=== PATIENT | male | born 1950 | race Caucasian/White ===

== ENCOUNTER 2018-11-15 17:00 | Emergency (ER) | payer SELFPAY ==
[2018-11-15] MEDS ORDERED: NORMAL SALINE 1000 ML 1,000 ML IV ONE (17:22)
[2018-11-15] MEDS ORDERED: ONDANSETRON HCL INJ/PF 4 MG/2 ML SDV IV ONE (17:22)
--- NOTE | 2018-11-15 17:22 | ER Document Report ---
ED Medical Screen (RME) - General Chief Complaint: General Weakness Stated Complaint: NAUSEA Time Seen by Provider: 11/15/18 17:15 - HPI Notes: 11/15/18 17:20 Patient is a 67-year-old male with a history of chronic pain who presents complaining of feeling weak for 6 months with nausea and vomiting over the past week. He was sent here from his doctor's office for evaluation because he appears jaundiced. Patient does not have any concern or complaint of pain. He is able to eat and drink, but does have a decreased p.o. intake. He is urinating normally and having normal bowel movements. Denies drug allergies. Patient does admit to alcohol use, but not daily. Denies HORTON, fever, neck pain, URI, CP, SOB, Abd pain, dysuria, or rash. I have treated and performed a rapid initial assessment of this patient. A comprehensive ED assessment and evaluation of the patient, analysis of test results and completion of medical decision making process will be conducted by additional ED providers. PHYSICAL EXAMINATION: GENERAL: Well-appearing, well-nourished and in no acute distress. A&Ox4. Answers questions appropriately. Heavy smoker smell noted Eyes: + icteric LUNGS: Breath sounds clear to auscultation bilaterally and equal. No wheezes rales or rhonchi. HEART: Regular rate and rhythm without murmurs, rubs, gallops. ABDOMEN: Soft, nondistended abdomen. No guarding, no rebound. Normal bowel sounds present. No CVA tenderness bilaterally. Grossly nontender (cannot elicit thorough abd exam w/o bed, however). Extremities: No cyanosis, clubbing, or edema b/l. NEUROLOGICAL: Normal speech, normal gait. PSYCH: Normal mood, normal affect. Skin: Jaundiced - Related Data Allergies/Adverse Reactions: No Known Allergies Allergy (Unverified 11/15/18 17:22) Physical Exam - Vital signs Vitals: Temp Pulse Resp BP Pulse Ox 97.9 F 112 H 22 H 83/61 L 93 11/15/18 17:07 11/15/18 17:07 11/15/18 17:07 11/15/18 17:07 11/15/18 17:07 Course - Vital Signs Vital signs: Temp Pulse Resp BP Pulse Ox 97.9 F 112 H 22 H 83/61 L 93 11/15/18 17:07 11/15/18 17:07 11/15/18 17:07 11/15/18 17:07 11/15/18 17:07
[2018-11-15 17:52] LABS: VENOUS BLOOD BASE EXCESS 3.4 mmol/L; VENOUS BLOOD HCO3 27.4 mmol/L (20-32); VENOUS BLOOD PCO2 39.8 mmHg (35-63); VENOUS BLOOD PH 7.46 (7.30-7.42)
[2018-11-15 17:57] LABS: HEMATOCRIT 36.3 % (37.9-51.0); HEMOGLOBIN 12.9 g/dL (13.5-17.0); MEAN CORPUSCULAR HGB CONC 35.7 g/dL (32.0-36.0); MEAN CORPUSCULAR VOLUME 106 fl (80-97); PLATELET COUNT 104 10^3/uL (150-450); RED BLOOD COUNT 3.41 10^6/uL (4.35-5.55); RED CELL DISTRIBUTION WIDTH 17.6 % (11.5-14.0); WHITE BLOOD COUNT 6.5 10^3/uL (4.0-10.5)
--- NOTE | 2018-11-15 17:59 | RADIOLOGY REPORT (SQ) ---
EXAM DESCRIPTION: CHEST SINGLE VIEW COMPLETED DATE/TIME: 11/15/2018 5:45 pm REASON FOR STUDY: weakness COMPARISON: None. EXAM PARAMETERS: NUMBER OF VIEWS: One view. TECHNIQUE: Single frontal radiographic view of the chest acquired. RADIATION DOSE: NA LIMITATIONS: None. FINDINGS: LUNGS AND PLEURA: No consolidation, masses or pneumothorax. Mild lateral pleural thickeni ng. No pleural effusion. MEDIASTINUM AND HILAR STRUCTURES: No masses. Contour normal. HEART AND VASCULAR STRUCTURES: Heart normal in size. Normal vasculature. BONES: No acute findings. HARDWARE: None in the chest. OTHER: No other significant finding. IMPRESSION: No consolidation or pleural effusion.Mild lateral pleural thickening. TECHNICAL DOCUMENTATION: JOB ID: [id number] [employer]- All Rights Reserved Reading location - IP/workstation name: [email or web address]
[2018-11-15 18:02] LABS: INTERNATIONAL RATION (INR) 1.31; PROTHROMBIN TIME 16.9 SEC (11.4-15.4)
[2018-11-15 18:03] LABS: PARTIAL THROMBOPLASTIN TIME 31.2 SEC (23.5-35.8)
[2018-11-15 18:12] LABS: ALANINE AMINOTRANSFERASE 504 U/L (21-72); ALKALINE PHOSPHATASE 459 U/L (38-126); ANION GAP 19 (5-19); ASPARTATE AMINO TRANSFERASE 442 U/L (17-59); BILIRUBIN,DIRECT 24.3 mg/dL (0.0-0.4); BILIRUBIN,TOTAL 26.5 mg/dL (0.2-1.3); BLOOD UREA NITROGEN 107 mg/dL (7-20); CALCIUM 8.4 mg/dL (8.4-10.2); CARBON DIOXIDE 25 mmol/L (22-30); CHLORIDE 87 mmol/L (98-107); GLUCOSE 120 mg/dL (75-110); LIPASE 331.6 U/L (23-300); TOTAL PROTEIN 5.8 g/dL (6.3-8.2)
[2018-11-15 18:13] LABS: ABSOLUTE LYMPHOCYTES# (MANUAL) 0.5 10^3/uL (0.5-4.7); ABSOLUTE MONOCYTES # (MANUAL) 0.3 10^3/uL (0.1-1.4); BASOPHILS % (MANUAL) 0 % (0-2); EOSINOPHILS % (MANUAL) 0 % (0-6); LYMPHOCYTES % (MANUAL) 8 % (13-45); MONOCYTES % (MANUAL) 4 % (3-13); SEGMENTED NEUTROPHILS % (MAN) 88 % (42-78); TOTAL CELLS COUNTED 100
[2018-11-15 18:14] LABS: ANISOCYTOSIS SLIGHT; OVALOCYTES SLIGHT; PLATELET COMMENT DECREASED; POIKILOCYTOSIS SLIGHT
--- NOTE | 2018-11-15 18:14 | RADIOLOGY REPORT (SQ) ---
EXAM DESCRIPTION: U/S ABDOMEN LIMITED W/O DOP COMPLETED DATE/TIME: 11/15/2018 6:03 pm REASON FOR STUDY: jaundice COMPARISON: None. TECHNIQUE: Dynamic and static grayscale images acquired of the abdomen and recorded on PACS. Additio nal selected color Doppler and spectral images recorded. LIMITATIONS: None. FINDINGS: PANCREAS: No masses. Visualized pancreatic duct normal caliber. LIVER: Coarsened, increased echogenicity throughout. No focal mass. LIVER VASCULATURE: Normal directional flow of the main portal vein and hepatic veins. GALLBLADDER: No stones. Normal wall thickness. No pericholecystic fluid. ULTRASOUND-DETECTED HDEZ'S SIGN: Negative. INTRAHEPATIC DUCTS AND COMMON DUCT: CBD and intrahepatic ducts normal caliber. No filling defects. INFERIOR VENA CAVA: Normal flow. AORTA: No aneurysm. RIGHT KIDNEY: Normal size. Normal echogenicity. No solid or suspicious masses. No hydronephrosis. No calcifications. PERITONEAL AND RIGHT PLEURAL SPACE: Simple appearing ascites is demonstrated adjacent to the liver. OTHER: No other significant findings. IMPRESSION: The liver demonstrates coarsened, increased echogenicity throughout. Note is made of co ncomitant ascites. Differential considerations are broad to include cirrhosis, hepatitis, or other i nfiltrative process. TECHNICAL DOCUMENTATION: JOB ID: [id number] [employer]- All Rights Reserved Reading location - IP/workstation name: [email or web address]
[2018-11-15 18:15] LABS: POTASSIUM 2.4 mmol/L (3.6-5.0)
[2018-11-15] MEDS ORDERED: POTASSIUM CHLORIDE 20 MEQ PACKET PO ONE (18:29)
--- NOTE | 2018-11-15 18:45 | ER Document Report ---
ED General - General Chief Complaint: General Weakness Stated Complaint: NAUSEA Time Seen by Provider: 11/15/18 17:15 - HPI Notes: Patient is a 67-year-old male that presents to the emergency department for chief complaint of jaundice. Patient states he has had increased fatigue and malaise for the last 6 months. He reports no appetite and poor oral intake. He went to an urgent care facility today who referred him to the emergency room for jaundice and hypotension. Patient states he has not seen a primary care provider in the last 10 years. He reports drinking 3-4 alcoholic beverages week. He denies history of alcoholism. Patient denies any abdominal pain, fevers, chills, chest pain, shortness of breath, and diarrhea. He denies history of IV drug use or liver failure in the past. Past Medical History: Negative Past Surgical History: Negative Social History: 3-4 alcoholic beverages a week. Denies tobacco. Denies illicit drug use Family History: Reviewed and noncontributory for presenting illness Allergies: Reviewed, see documented allergy list. REVIEW OF SYSTEMS: CONSTITUTIONAL : No fever No chills No diaphoresis No recent illness Generalized weakness Poor appetite EENT: No vision changes No congestion No sore throat CARDIOVASCULAR: No chest pain No palpitations RESPIRATORY: No shortness of breath No cough No difficulty breathing GASTROINTESTINAL: No abdominal pain No nausea No vomiting No diarrhea GENITOURINARY: No dysuria No hematuria No difficulty urinating MUSCULOSKELETAL: No back pain No leg pain No arm pain SKIN: Jaundice No rashes No lesions LYMPHATIC: No swollen, enlarged glands. NEUROLOGICAL: No lightheadedness No headache No weakness No paresthesias PSYCHIATRIC: No anxiety No depression PHYSICAL EXAMINATION: Vital signs reviewed, nursing noted reviewed. GENERAL: Jaundiced, malnourished. HEAD: Atraumatic, normocephalic. EYES: Nystagmus, extraocular movements intact, sclera icteric, conjunctiva are normal ENT: nares patent, oropharynx clear without exudates. Dry mucous membranes. NECK: Normal range of motion, supple without lymphadenopathy LUNGS: Breath sounds clear to auscultation bilaterally and equal. No wheezes rales or rhonchi. HEART: Tachycardic rate and regular rhythm without murmurs ABDOMEN: Soft, nontender, normoactive bowel sounds. No rebound, guarding, or rigidity. No masses appreciated. EXTREMITIES: Nontender, good range of motion, no pitting or edema. NEUROLOGICAL: No focal neurological deficits. Moves all extremities spontaneously Motor and sensory grossly intact on exam. PSYCH: Normal mood, normal affect. SKIN: Warm, Dry, jaundice - Related Data Allergies/Adverse Reactions: No Known Allergies Allergy (Unverified 11/15/18 17:22) Past Medical History - Social History Smoking Status: Current Every Day Smoker Chew tobacco use (# tins/day): No Frequency of alcohol use: Heavy Drug Abuse: None Family History: Reviewed & Not Pertinent Patient has suicidal ideation: No Patient has homicidal ideation: No Renal/ Medical History: Denies: Hx Peritoneal Dialysis Physical Exam - Vital signs Vitals: Temp Pulse Resp BP Pulse Ox 97.9 F 112 H 22 H 83/61 L 93 11/15/18 17:07 11/15/18 17:07 11/15/18 17:07 11/15/18 17:07 11/15/18 17:07 Course - Re-evaluation Re-evalutation: 11/15/18 20:26 Vitals reviewed. Nursing notes reviewed. Patient presented tachycardic and hypotensive. His lab work shows acute liver and renal failure. He is hypokalemic which was replaced in the emergency room. Patient was resuscitated with IV fluids which improved his blood pressure. He has been mentating normally throughout his stay in the emergency room. He does have a elevated ammonia at 50. Patient has a slight elevation of PT and is thrombocytopenic secondary to his renal failure. I did discuss his care with hematology at [facility] Dr. Youngblood who cannot accept patient onto their service because of no bed availability. He does recommend starting antibiotics. Patient's care was discussed with Dr. Galvan at [facility] who is accepted patient onto the MICU floor. Patient is in agreement with this plan of care and stable for transfer. Laboratory 11/15/18 11/15/18 11/15/18 17:27 17:27 17:27 WBC 6.5 RBC 3.41 L Hgb 12.9 L Hct 36.3 L MCV 106 H MCH 38.0 H MCHC 35.7 RDW 17.6 H Plt Count 104 L Total Counted 100 Seg Neutrophils % Not Reportable Seg Neuts % (Manual) 88 H Lymphocytes % Not Reportable Lymphocytes % (Manual) 8 L Monocytes % Not Reportable Monocytes % (Manual) 4 Eosinophils % Not Reportable Eosinophils % (Manual) 0 Basophils % Not Reportable Basophils % (Manual) 0 Absolute Neutrophils Not Reportable Abs Neuts (Manual) 5.7 Absolute Lymphocytes Not Reportable Abs Lymphs (Manual) 0.5 Absolute Monocytes Not Reportable Abs Monocytes (Manual) 0.3 Absolute Eosinophils Not Reportable Absolute Eos (Manual) 0.0 Absolute Basophils Not Reportable Abs Basophils (Manual) 0.0 Platelet Comment DECREASED Poikilocytosis SLIGHT Anisocytosis SLIGHT Ovalocytes SLIGHT PT 16.9 H INR 1.31 APTT 31.2 VBG pH VBG pCO2 VBG HCO3 VBG Base Excess Sodium 131.0 L Potassium 2.4 L* Chloride 87 L Carbon Dioxide 25 Anion Gap 19 BUN 107 H Creatinine 8.20 H Est GFR ( Amer) 8 L Est GFR (Non-Af Amer) 7 L Glucose 120 H Calcium 8.4 Total Bilirubin 26.5 H Direct Bilirubin 24.3 H Neonat Total Bilirubin Not Reportable Neonat Direct Bilirubin Not Reportable Neonat Indirect Bili Not Reportable AST 442 H ALT 504 H Alkaline Phosphatase 459 H Ammonia Total Protein 5.8 L Albumin 3.0 L Lipase 331.6 H 11/15/18 11/15/18 17:27 17:27 WBC RBC Hgb Hct MCV MCH MCHC RDW Plt Count Total Counted Seg Neutrophils % Seg Neuts % (Manual) Lymphocytes % Lymphocytes % (Manual) Monocytes % Monocytes % (Manual) Eosinophils % Eosinophils % (Manual) Basophils % Basophils % (Manual) Absolute Neutrophils Abs Neuts (Manual) Absolute Lymphocytes Abs Lymphs (Manual) Absolute Monocytes Abs Monocytes (Manual) Absolute Eosinophils Absolute Eos (Manual) Absolute Basophils Abs Basophils (Manual) Platelet Comment Poikilocytosis Anisocytosis Ovalocytes PT INR APTT VBG pH 7.46 H VBG pCO2 39.8 VBG HCO3 27.4 VBG Base Excess 3.4 Sodium Potassium Chloride Carbon Dioxide Anion Gap BUN Creatinine Est GFR ( Amer) Est GFR (Non-Af Amer) Glucose Calcium Total Bilirubin Direct Bilirubin Neonat Total Bilirubin Neonat Direct Bilirubin Neonat Indirect Bili AST ALT Alkaline Phosphatase Ammonia 50.1 H Total Protein Albumin Lipase Abdomen Ultrasound 11/15/18 17:18 IMPRESSION: The liver demonstrates coarsened, increased echogenicity throughout. Note is made of concomitant ascites. Differential considerations are broad to include cirrhosis, hepatitis, or other infiltrative process. Chest X-Ray 11/15/18 17:19 IMPRESSION: No consolidation or pleural effusion.Mild lateral pleural thickening. - Vital Signs Vital signs: Temp Pulse Resp BP Pulse Ox 97.9 F 112 H 14 108/76 93 11/15/18 17:07 11/15/18 17:07 11/15/18 19:01 11/15/18 19:01 11/15/18 17:07 - Laboratory Result Diagrams: 11/15/18 17:27 11/15/18 17:27 Laboratory results interpreted by me: 11/15/18 11/15/18 11/15/18 17:27 17:27 17:27 RBC 3.41 L Hgb 12.9 L Hct 36.3 L MCV 106 H MCH 38.0 H RDW 17.6 H Plt Count 104 L Seg Neuts % (Manual) 88 H Lymphocytes % (Manual) 8 L PT 16.9 H VBG pH Sodium 131.0 L Potassium 2.4 L* Chloride 87 L BUN 107 H Creatinine 8.20 H Est GFR ( Amer) 8 L Est GFR (Non-Af Amer) 7 L Glucose 120 H Total Bilirubin 26.5 H Direct Bilirubin 24.3 H AST 442 H ALT 504 H Alkaline Phosphatase 459 H Ammonia Total Protein 5.8 L Albumin 3.0 L Lipase 331.6 H 11/15/18 11/15/18 17:27 17:27 RBC Hgb Hct MCV MCH RDW Plt Count Seg Neuts % (Manual) Lymphocytes % (Manual) PT VBG pH 7.46 H Sodium Potassium Chloride BUN Creatinine Est GFR ( Amer) Est GFR (Non-Af Amer) Glucose Total Bilirubin Direct Bilirubin AST ALT Alkaline Phosphatase Ammonia 50.1 H Total Protein Albumin Lipase Critical Care Note - Critical Care Note Total time excluding time spent on procedures (mins): 50 Comments: Critical care time 50 exclusive from separate billable procedures for a patient requiring complex medical decision making, and high potential for clinical deterioration. Time spent obtaining history from patient or surrogate, discussions with consultants, development of treatment plan with patient or surr ogate, evaluation of patient's response to treatment, examination of patient, ordering and performing treatments and interventions, ordering and review of laboratory studies, re-evaluation of patient's condition, ordering and review of radiographic studies and review of old charts Discharge - Discharge Clinical Impression: Thrombocytopenia, Jaundice, Hyperammonemia, Hyponatremia Acute liver failure Qualifiers: Hepatic coma status: without hepatic coma Qualified Code(s): K72.00 - Acute and subacute hepatic failure without coma Acute renal failure Qualifiers: Acute renal failure type: unspecified Qualified Code(s): N17.9 - Acute kidney failure, unspecified Cirrhosis Qualifiers: Hepatic cirrhosis type: alcoholic cirrhosis Ascites presence: with ascites Qualified Code(s): K70.31 - Alcoholic cirrhosis of liver with ascites Hypotension Qualifiers: Hypotension type: unspecified hypotension type Qualified Code(s): I95.9 - Hypotension, unspecified Condition: Critical Disposition: [facility]
[2018-11-15] MEDS ORDERED: PIPERACILLIN/TAZOBACTAM 3.375 GM VIAL IV ONE (18:51)
[2018-11-15] MEDS: POTASSI CL 20 MEQ/50 ML RIDER 20 MEQ/50 ML RTUPB IV SCH ×2 (18:54→20:59)
[2018-11-15] MEDS ORDERED: CEFTRIAXONE INJ 1000 MG VIAL IV ONE (19:18)
[2018-11-15 20:55] VITALS: BP 112/74
== END 2018-11-15 20:45 | disposition short-term general hospital (02) ==
LOC: ER 17:00
DX: N17.9 Acute kidney failure, unspecified (principal); K72.00 Acute and subacute hepatic failure without coma; D69.6 Thrombocytopenia, unspecified; E72.20 Disorder of urea cycle metabolism, unspecified; E87.1 Hypo-osmolality and hyponatremia; I95.9 Hypotension, unspecified; R00.0 Tachycardia, unspecified; R11.0 Nausea; R53.1 Weakness; F17.200 Nicotine dependence, unspecified, uncomplicated
CPT/HCPCS: 99291; 96375; 96365; 96366; 36415; 87040; 82140; 83690; 85025; 85610; 85730; 80053; 82803; 71045; 76705; J0696; J2405; J3480; J7030; J3490